=== PATIENT | male | born 1935 | race Caucasian/White ===

== ENCOUNTER 2016-10-19 11:36 | Emergency (ER) | payer OTHER ==
[~2016-10-19] VITALS: Ht 175.3 cm; Wt 86.2 kg
--- NOTE | ~2016-10-19 | EKG ---
[place] [address] 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 : 1935 Requested By: Flores Ram Order Number: [id number] MD: Scott Dobbins Measurements Intervals [place] Rate: 87 P: 62 CO: 191 QRS: 8 QRSD: 102 T: 66 QT: 376 QTc: 453 Interpretive Statements Sinus rhythm Abnormal R-wave progression, early transition Baseline wander in lead(s) II,III,aVF,V5 Compared to ECG 05/14/2016 14:14:43 First degree AV block no longer present Electronically Signed On 10-20-2016 7:52:30 NEEDLE LOOM TENDER by Scott Dobbins [email or web address] <ELECTRONICALLY SIGNED> By: Scott Dobbins MD, [facility] 10/20/16 0752 1231 1231 Scott Dobbins MD, [facility] /EPI
[~2016-10-19 11:36] MED LIST: AMITRIPTYLINE H25 M2 PO; ASPIR 8181 MG PO; BENICAR20 MG PO; CARDIZEM CD120 MG PO; CARVEDILOL12.5 MG PO; HYDROCODONE-AP1 EAC6 PO; LASIX 20 MG TAB20 MG PO; NAPROSYN500 MG PO; PLAVIX 75 MG TA75 M1 PO; SIMVASTATIN40 MG PO; ZANTAC 150MG T150 MG PO
[2016-10-19 12:17] LABS: ABSOLUTE NEUTROPHILS 5.7 thou/uL (1.4-8.2); BASOPHILS 0.5 % (0.0-2.0); EOSINOPHILS 2.9 % (0.0-3.0); HEMATOCRIT 42.3 % (42.0-52.0); HEMOGLOBIN 14.5 gm/dL (14.0-18.0); LYMPHOCYTES 18.3 % (24.0-44.0); MCH 31.8 pg (26.0-34.0); MCHC 34.2 % (28.0-37.0); MCV 93.2 fL (80.0-100.0); PLATELET COUNT 161 thou/uL (150-400); POLYS 70.3 % (36.0-66.0); RBC 4.54 mil/uL (4.50-6.00); RDW 13.9 % (10.5-14.5); WBC 8.1 thou/uL (4.0-11.0)
[2016-10-19 12:28] LABS: MANUAL DIFF NO
[2016-10-19 12:31] LABS: ANION GAP 3 mmol/L (7-16); BUN 22 mg/dL (7-18); CALCIUM 8.9 mg/dL (8.5-10.1); CHLORIDE 99 mmol/L (98-107); CO2 36 mmol/L (21-32); CREATININE 1.4 mg/dL (0.6-1.3); GLUCOSE 269 mg/dL (70-99); POTASSIUM 3.8 mmol/L (3.5-5.1); SODIUM 138 mmol/L (136-145)
[2016-10-19 12:36] LABS: ALBUMIN 3.4 g/dL (3.4-5.0); ALKALINE PHOSPHATASE 107 U/L (46-116); DIRECT BILIRUBIN < 0.1 mg/dL (<0.1-0.3); SGOT 16 U/L (15-37); SGPT 24 U/L (30-65); TOTAL BILIRUBIN 0.3 mg/dL (<0.1-1.0); TOTAL PROTEIN 6.8 g/dL (6.4-8.2)
[2016-10-19 14:05] LABS: URINE BILIRUBIN NEGATIVE (Negative); URINE BLOOD 3+ (Negative); URINE COLOR YELLOW; URINE GLUCOSE-RANDOM* 2+ (Negative); URINE KETONES NEGATIVE (Negative); URINE LEUKOCYTES-REFLEX NEGATIVE (Negative); URINE PROTEIN (DIPSTICK) NEGATIVE (Negative); URINE SPECIFIC GRAVITY 1.015 (1.003-1.035); URINE UROBILINOGEN 0.2 E.U./dl (0.2-1.0)
[2016-10-19 14:20] LABS: CASTS None Seen /LPF (None Seen); CRYSTALS None Seen /LPF (None Seen); SQUAMOUS 0-3 Few /LPF (0-3); URINE RBC >20 Many /HPF (0-2); URINE WBC-REFLEX 0-5 Rare /HPF (0-5)
== END 2016-10-19 14:53 | disposition home or self-care (01) ==
LOC: ER 11:36
PROVIDERS: Emergency Medicine
DX: R73.9 Hyperglycemia, unspecified (principal); E86.0 Dehydration; I11.0 Hypertensive heart disease with heart failure; I50.9 Heart failure, unspecified; Z86.73 Personal history of transient ischemic attack (TIA), and cerebral infarction without residual deficits; Z91.048 Other nonmedicinal substance allergy status; Z88.8 Allergy status to other drugs, medicaments and biological substances; F10.99 Alcohol use, unspecified with unspecified alcohol-induced disorder

== ENCOUNTER → 2016-10-21 | Outpatient (CLI) | payer OTHER | LOC: RAD 02:43 | DX: F44.89 Other dissociative and conversion disorders (principal); G31.9 Degenerative disease of nervous system, unspecified ==

== ENCOUNTER 2017-03-16 07:08 | Inpatient (IN) | payer OTHER ==
[~2017-03-16] VITALS: Ht 175.3 cm; Wt 87.8 kg
--- NOTE | ~2017-03-16 | EKG ---
[address] [address] ELECTROCARDIOGRAM REPORT Name: HUANG CARMEN Room #: 539-P ADM IN M.R.#: [id number] Admission: 03/16/17 Attend Phys: Nestor Greenwood MD Discharge: Date of : 34 Report #: [id number] THIS REPORT FOR: //name// [facility] ED Test Date: 2017-03-16 Test Time: 07:57:59 Pat Name: HUANG CARMEN Department: Room: 539 Gender: M House Registry Rn: MIRA TERRAZAS : 1935 Requested By: Belle Rico Order Number: [id number] MD: Scott Dobbins Measurements Intervals [place] Rate: 77 P: 73 WV: 207 QRS: 0 QRSD: 105 T: 81 QT: 405 QTc: 459 Interpretive Statements Sinus rhythm Abnormal R-wave progression, early transition Nonspecific T abnormalities, lateral leads Compared to ECG 10/19/2016 12:31:58 No significant change was found Electronically Signed On 03-19-2017 11:48:14 CDT by Scott Dobbins [email or web address] <ELECTRONICALLY SIGNED> By: Scott Dobbins MD, [facility] 03/19/17 1148 0757 0757 Scott Dobbins MD, [facility] /EPI
--- NOTE | ~2017-03-16 | O ---
[facility] [place] [address] OPERATIVE REPORT Name: HUANG CARMEN Room #: 539-P ADM IN M.R.#: [id number] Admission: 03/16/17 Attend Phys: Nestor Greenwood MD Discharge: Date of : 33 Report #: [id number] THIS REPORT FOR: //name// CC: Nestor Rico DATE OF SERVICE: 03/17/2017 PREOPERATIVE DIAGNOSIS: Fracture, left femoral neck. POSTOPERATIVE DIAGNOSIS: Fracture, left femoral neck. PROCEDURE: Left proximal femoral hemiarthroplasty. SURGEON: Terrence Frances M.D. INDICATIONS: This frail, but still active and ambulatory 82-year-old gentleman uses a walker or cane for support, but is able to ambulate independently. He fell injuring the left hip. X-rays reveal a fracture of the femoral neck with some impaction. We have discussed preoperatively the option of either percutaneous screw stabilization or hemiarthroplasty. I feel his balance and weakness issues will make him a poor candidate for rehab with percutaneous fixation. We have elected to go ahead with hemiarthroplasty in hopes he can more rapidly advance to independent ambulation. They understand the treatment options and the risks and benefits well. DESCRIPTION OF PROCEDURE: The patient was taken to the operating room where he was placed under general anesthesia. Prophylactic intravenous antibiotics were administered. He was turned to the right lateral decubitus position. The left hip and thigh were meticulously prepped and draped. A slightly curving posterolateral skin incision was made extending through the fascia and exposing the posterior aspect of the hip joint. The short external rotators and joint capsule were taken down and tagged with several #2 Tevdek sutures. The femoral neck was found to be fractured and unstable. The head was removed and measured at 53 mm in diameter. The femoral neck was trimmed back to an appropriate level. The Genesis Secur-Fit hip system was utilized. The canal was sequentially reamed and broached to a size 7. A trial reduction revealed that a +5 mm neck length fit nicely with good stability, alignment, range of motion. A cement restrictor was placed. Methyl methacrylate cement was mixed and injected into the canal. The permanent Genesis cemented Secur-Fit stem was selected. This was placed in the canal, positioning this in about 20-25 degrees of anteversion, it seated nicely. Gentle pressure was held as the cement hardened. A trial reduction was then performed and the hip seemed nicely reduced and stable when using a 53 mm bipolar head and a +5 mm neck length. The permanent components were brought on to the field and impacted on to the Can taper, the hip was reduced. Alignment, range of motion, stability and leg length were [facility] [address] [place] [address] OPERATIVE REPORT Name: HUANG CARMEN Room #: 539-P [facility] IN M.R.#: [id number] Admission: 03/16/17 Attend Phys: Nestor Greenwood MD Discharge: Date of : 34 Report #: [id number] assessed and felt to be satisfactory. The wound was copiously irrigated and good hemostasis was established. The capsule and short external rotators were repaired using the #1 Tevdek sutures previously placed and passing these through the bone of the greater trochanter. This resulted in excellent hip stability. A single Hemovac was left in the wound exiting through a separate stab incision. The fascia was then closed with multiple #1 Vicryl sutures. The subcutaneous tissues were closed with 0 Monocryl. The skin was closed with skin sweetie. A sterile dressing was applied. The patient was awakened and returned to the recovery room in satisfactory condition. <ELECTRONICALLY SIGNED> By: Terrence Frances MD 03/18/17 0818 1611 1654 Terrence Frances MD /nt
--- NOTE | ~2017-03-16 | HC ---
[facility] [place] [address] CONSULTATION Name: HUANG CARMEN Room #: 539-P ADM IN M.R.#: [id number] Admission: 03/16/17 Attend Phys: Nestor Greenwood MD Discharge: Date of : 34 Report #: [id number] THIS REPORT FOR: //name// CC: Nestor Rico CHIEF COMPLAINT: Left femoral neck fracture. HISTORY OF PRESENT ILLNESS: This frail, but still alert and active 82-year-old gentleman lives with his sister in their own home. He has been ambulatory with a cane or walker for balance and apparently functioning reasonably well. He has a history of hypertension and cardiovascular disease and type 2 diabetes and is well managed on medications. He fell, injuring the left hip. X-rays here reveal an impacted fracture of the left femoral neck. He also has a previous right intertrochanteric fracture, treated with metal fixation, which was subsequently removed. He does have some shortening and some arthritic damage on the opposite right side, which limits his ambulation. At this point, he is too uncomfortable to ambulate on the left hip given his new fracture. He denies any other areas of significant discomfort. PHYSICAL EXAMINATION: Objectively, he is slightly confused, but seems to understand the situation well. He is accompanied by 2 sisters to understand the issue well also. He notes he does have discomfort with any attempted movement of the left hip, but is resting fairly comfortably in bed with the hip slightly flexed. Objectively, he seems to have no other areas of injury involving the neck, upper extremities or back. The pelvis seems to be stable and well aligned. 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 There is no obvious deformity or instability on the right side. The left lower extremity is held in a slightly flexed position with subjective discomfort on any movement. There is not marked deformity or shortening, however. The knee also demonstrates some crepitus and discomfort with movement, although this is only mild. The lower leg, foot and ankle appear to be normal. DIAGNOSTIC DATA: X-rays of the pelvis and left hip reveal an impacted fracture of the femoral neck with slight valgus position. There is not marked displacement at this point, but the fracture seems to be complete and certainly appears potentially unstable. There is mild degenerative arthritis at the joint. The opposite hip shows an old healed intertrochanteric fracture in an acceptable alignment, with somewhat more significant degenerative arthritis at the hip joint. SUMMARY: In summary, this gentleman has a new left femoral neck fracture which is impacted into valgus position. I have explained that this might be manageable with percutaneous screw stabilization; however, it would clearly require protected weightbearing for a period of time and might not heal in successfully. I think he has difficulty with ambulation and would have a hard [address] [address] CONSULTATION Name: HUANG CARMEN Room #: 539-P [facility] IN M.R.#: [id number] Admission: 03/16/17 Attend Phys: Nestor Greenwood MD Discharge: Date of : 34 Report #: [id number] time protecting this left hip and probably would eventually need hip arthroplasty. Consequently, I think the best approach would be to proceed with left hip hemiarthroplasty at this time. The patient and his sisters understand and agree. We will plan to proceed with surgery tomorrow if medical clearance and OR scheduling will allow. <ELECTRONICALLY SIGNED> By: Terrence Frances MD 03/17/17 1449 1711 0001 Terrence Frances MD /nt
--- NOTE | ~2017-03-16 | HC ---
[facility] [place] [address] CONSULTATION Name: HUANG CARMEN Room #: 539-P [facility] IN M.R.#: [id number] Admission: 03/16/17 Attend Phys: Nestor Greenwood MD Discharge: 03/21/17 Date of : 34 Report #: [id number] THIS REPORT FOR: //name// CC: Nestor Rico HISTORY OF PRESENT ILLNESS: The patient is an 82-year-old white male with a history of atrial fibrillation, CHF, hypertension, who had a fall with left hip pain. He was diagnosed with a left femoral neck fracture, impacted. He underwent a left hip hemiarthroplasty on 03/17/2017, therapies are evaluating. We are seeing him in rehabilitation medicine consultation. Postoperatively, he has had some hypoxia and is currently on 2 liters nasal prong O2. He thought to have probable COPD/emphysema. PAST MEDICAL HISTORY: Includes past CVA in 2000, hypertension, coronary artery disease, atrial fibrillation, CHF, carotid occlusion, dementia, and vertigo. HABITS: Former smoker, cigarettes, 100 pack year history, quit greater than a year ago; past use of alcohol was noted. MEDICATIONS: Please see the full medication listing. SOCIAL HISTORY: Lives with his sister in a house, 4 steps in. Premorbidly utilized a cane versus a walker. REVIEW OF SYSTEMS: Did not offer any current complaints of chest pain, shortness of breath or abdominal discomfort. PHYSICAL EXAMINATION: GENERAL: An 82-year-old white male in no obvious distress. VITAL SIGNS: Last recorded temperature is 98.6, pulse 113, respirations 18, blood pressure 124/55. NEUROLOGIC: The patient is alert, pleasant, somewhat tangential, little hard of hearing. He is on 3 liters nasal prong O2. Facies are symmetric. Functional range of motion of both upper extremities with strength grade of 4-/5. DTRs are 1. Left hip is dressed. He has some discomfort when attempting to move the left lower extremity. It appears to have a least antigravity dorsiflexion at the left ankle. Right lower extremity strength is probably a grade 3+ to 4-/5. DTRs are decreased. He was max assist for supine to sit and does have poor endurance. Physical therapy is currently evaluating. ASSESSMENT: An 82-year-old white male with the following problem list: 1. Left femoral neck fracture status post hemiarthroplasty on 03/17/2017, allowed weightbearing as tolerated. 2. Hypoxia with probable underlying chronic obstructive pulmonary disease and emphysema. 3. Diastolic congestive heart failure chronic/[place] [address] CONSULTATION Name: HUANG CARMEN Room #: 539-P [facility] IN M.R.#: [id number] Admission: 03/16/17 Attend Phys: Nestor Greenwood MD Discharge: 03/21/17 Date of : 34 Report #: [id number] 4. Chronic atrial fibrillation. 5. Past history of tobacco abuse. 6. Past history of dementia, but living in the community with family. PLAN: He is currently at a low functional level. Would anticipate a fdc facility stay as the most appropriate for this patient. We will continue to follow along with you for now. <ELECTRONICALLY SIGNED> By: Terrence Sánchez MD 03/22/17 1826 1209 1314 Terrence Sánchez MD /nt
[2017-03-16 07:11] VITALS: BP 118/64
[2017-03-16 07:55] LABS: HEMATOCRIT 42.5 % (42.0-52.0); HEMOGLOBIN 14.4 gm/dL (14.0-18.0); MCH 31.1 pg (26.0-34.0); MCHC 33.9 g/dL (28.0-37.0); MCV 91.5 fL (80.0-100.0); RBC 4.65 mil/uL (4.50-6.00); RDW 13.4 % (10.5-14.5); WBC 11.4 thou/uL (4.0-11.0)
[2017-03-16 07:56] LABS: MANUAL DIFF YES
[2017-03-16 08:05] LABS: CALCIUM 8.7 mg/dL (8.5-10.1); CREATININE 1.4 mg/dL (0.7-1.3); POTASSIUM 4.1 mmol/L (3.5-5.1)
[2017-03-16 08:08] LABS: INR 1.1; PROTIME 11.1 Seconds (9.3-11.4)
[2017-03-16 08:25] LABS: ABSOLUTE NEUTROPHILS 9.8 thou/uL (1.4-8.2); PLATELET COUNT 127 thou/uL (150-400); TOTAL CELL COUNT 100
[2017-03-16 08:26] LABS: ANISOCYTOSIS SLIGHT
[2017-03-16] MEDS ORDERED: ELIQUIS2.5 MG PO (09:21)
[2017-03-16] MEDS ORDERED: OMEPRAZOLE40 MG PO (09:24)
[2017-03-16] MEDS ORDERED: PANTOPRAZOLE SO40 M1 PO (09:26)
[2017-03-16] MEDS ORDERED: SEROQUEL 25 MG25 M1 PO (09:40)
[2017-03-16] MEDS ORDERED: ATIVAN1 MG PO (09:41)
[2017-03-16] MEDS ORDERED: RISPERIDONE0.5 MG PO (09:42)
[2017-03-16] MEDS ORDERED: JANUVIA100 MG PO (09:43)
[2017-03-16] MEDS ORDERED: MOBIC7.5 MG PO (09:43)
[2017-03-16] MEDS ORDERED: NORVASC5 MG PO (09:44)
[2017-03-16] MEDS ORDERED: HYDROCHLOROTH12.5 M1 PO (09:45)
[2017-03-16 10:25] LABS: TSH 3.549 uIU/mL (0.358-3.740)
[2017-03-16 12:20] VITALS: BP 118/68
[2017-03-16 16:29] VITALS: BP 125/56
[2017-03-16 19:51] VITALS: BP 131/60
[2017-03-16 23:36] VITALS: BP 123/61
[2017-03-17] VITALS (14 sets, daily range): BP systolic 104–168; BP diastolic 49–84
[2017-03-17 06:09] LABS: ABSOLUTE NEUTROPHILS 6.6 thou/uL (1.4-8.2); BASOPHILS 0.3 % (0.0-2.0); HEMATOCRIT 42.4 % (42.0-52.0); HEMOGLOBIN 14.5 gm/dL (14.0-18.0); LYMPHOCYTES 13.6 % (24.0-44.0); MCH 31.2 pg (26.0-34.0); MCHC 34.3 g/dL (28.0-37.0); MONOCYTES 7.7 % (1.0-8.0); PLATELET COUNT 117 thou/uL (150-400); POLYS 72.4 % (36.0-66.0); RBC 4.66 mil/uL (4.50-6.00); RDW 13.6 % (10.5-14.5); WBC 9.1 thou/uL (4.0-11.0)
[2017-03-17 06:20] LABS: MANUAL DIFF NO
[2017-03-17 06:24] LABS: CALCIUM 8.5 mg/dL (8.5-10.1); CREATININE 1.1 mg/dL (0.7-1.3); MAGNESIUM 1.9 mg/dL (1.8-2.4); POTASSIUM 3.7 mmol/L (3.5-5.1)
[2017-03-17 18:49] LABS: HEMATOCRIT 41.6 % (42.0-52.0); HEMOGLOBIN 13.9 gm/dL (14.0-18.0); MCH 30.9 pg (26.0-34.0); MCHC 33.5 g/dL (28.0-37.0); MCV 92.3 fL (80.0-100.0); RBC 4.5 mil/uL (4.50-6.00); RDW 13.2 % (10.5-14.5)
[2017-03-18 03:37] LABS: HEMATOCRIT 37.1 % (42.0-52.0); HEMOGLOBIN 12.6 gm/dL (14.0-18.0); MCHC 34.1 g/dL (28.0-37.0); MCV 91.1 fL (80.0-100.0); RBC 4.08 mil/uL (4.50-6.00); RDW 13.4 % (10.5-14.5); WBC 13.8 thou/uL (4.0-11.0)
[2017-03-18 03:48] LABS: CREATININE 1.3 mg/dL (0.7-1.3)
[2017-03-18 04:30] VITALS: BP 107/66
[2017-03-18 08:00] VITALS: BP 108/57
[2017-03-18 10:19] VITALS: BP 124/55
[2017-03-18 17:02] VITALS: BP 108/57
[2017-03-18 20:00] VITALS: BP 112/46
[2017-03-19 04:00] VITALS: BP 115/50
[2017-03-19 04:50] LABS: MCH 31.8 pg (26.0-34.0); MCHC 34.5 g/dL (28.0-37.0); MCV 91.9 fL (80.0-100.0); RBC 3.48 mil/uL (4.50-6.00); RDW 13.4 % (10.5-14.5)
[2017-03-19 07:52] VITALS: BP 118/32
[2017-03-19 08:00] VITALS: BP 138/65
[2017-03-19 15:20] VITALS: BP 138/65
[2017-03-19 19:22] VITALS: BP 155/55
[2017-03-19 20:21] VITALS: BP 155/55
[2017-03-20 03:35] VITALS: BP 119/61
[2017-03-20 03:43] LABS: HEMATOCRIT 29.6 % (42.0-52.0); HEMOGLOBIN 10.3 gm/dL (14.0-18.0); MCH 31.9 pg (26.0-34.0); MCHC 34.9 g/dL (28.0-37.0); MCV 91.3 fL (80.0-100.0); PLATELET COUNT 113 thou/uL (150-400); RBC 3.24 mil/uL (4.50-6.00); RDW 13.5 % (10.5-14.5); WBC 10.7 thou/uL (4.0-11.0)
[2017-03-20 03:46] LABS: MANUAL DIFF YES
[2017-03-20 03:59] LABS: CALCIUM 7.9 mg/dL (8.5-10.1); CREATININE 1.1 mg/dL (0.7-1.3); POTASSIUM 3.8 mmol/L (3.5-5.1)
[2017-03-20 04:38] LABS: ABSOLUTE NEUTROPHILS 8.3 thou/uL (1.4-8.2); TOTAL CELL COUNT 100
[2017-03-20 04:39] LABS: LARGE PLATELETS RARE
[2017-03-20 07:55] VITALS: BP 106/58
[2017-03-20 15:45] VITALS: BP 121/54
[2017-03-20 20:26] VITALS: BP 118/62
[2017-03-21 03:13] VITALS: BP 131/65
[2017-03-21 03:51] LABS: HEMATOCRIT 29.7 % (42.0-52.0); HEMOGLOBIN 10.4 gm/dL (14.0-18.0); MCV 91.3 fL (80.0-100.0); PLATELET COUNT 152 thou/uL (150-400); RBC 3.26 mil/uL (4.50-6.00); RDW 13.4 % (10.5-14.5); WBC 9.2 thou/uL (4.0-11.0)
[2017-03-21 03:53] LABS: MANUAL DIFF YES
[2017-03-21 04:11] LABS: CALCIUM 8.2 mg/dL (8.5-10.1); POTASSIUM 3.9 mmol/L (3.5-5.1)
[2017-03-21 04:22] LABS: ABSOLUTE NEUTROPHILS 7.4 thou/uL (1.4-8.2); LARGE PLATELETS OCCASIONAL; TOTAL CELL COUNT 100
[2017-03-21 07:50] VITALS: BP 137/71
[2017-03-21] MEDS ORDERED: MIRALAX17 GM PO (13:35)
[2017-03-21] MEDS ORDERED: COLACE 100 MG100 MG PO (13:35)
[2017-03-21] MEDS ORDERED: BISAC-EVAC10 MG RECTAL (13:35)
[2017-03-21 20:00] VITALS: BP 99/54
== END 2017-03-21 16:00 | DRG 470 ==
LOC: ER 07:08 → EROBS 08:16 → 5S 08:16
PROVIDERS: Emergency Medicine; Hospitalist; Internal Medicine Endocrinology, Diabetes & Metabolism; Nurse Practitioner; Orthopaedic Surgery
PROC: 0SRS0J9 Replacement of Left Hip Joint, Femoral Surface with Synthetic Substitute, Cemented, Open Approach (ICD-10-PCS; principal; 2017-03-17)
DX: S72.002A Fracture of unspecified part of neck of left femur, initial encounter for closed fracture (principal); I50.32 Chronic diastolic (congestive) heart failure; S42.302A Unspecified fracture of shaft of humerus, left arm, initial encounter for closed fracture; I69.354 Hemiplegia and hemiparesis following cerebral infarction affecting left non-dominant side; J96.10 Chronic respiratory failure, unspecified whether with hypoxia or hypercapnia; I25.10 Atherosclerotic heart disease of native coronary artery without angina pectoris; F03.90 Unspecified dementia, unspecified severity, without behavioral disturbance, psychotic disturbance, mood disturbance, and anxiety; I11.0 Hypertensive heart disease with heart failure; R09.02 Hypoxemia; I48.2 Chronic atrial fibrillation; E11.65 Type 2 diabetes mellitus with hyperglycemia; J44.9 Chronic obstructive pulmonary disease, unspecified; W01.0XXA Fall on same level from slipping, tripping and stumbling without subsequent striking against object, initial encounter; R54 Age-related physical debility; G89.29 Other chronic pain; M25.551 Pain in right hip; Z88.6 Allergy status to analgesic agent; Z98.49 Cataract extraction status, unspecified eye; Z82.49 Family history of ischemic heart disease and other diseases of the circulatory system; Z80.9 Family history of malignant neoplasm, unspecified; Z83.3 Family history of diabetes mellitus; Z79.899 Other long term (current) drug therapy; Z83.6 Family history of other diseases of the respiratory system; Z82.3 Family history of stroke; Z82.0 Family history of epilepsy and other diseases of the nervous system; Z87.891 Personal history of nicotine dependence; Y93.89 Activity, other specified; Y92.89 Other specified places as the place of occurrence of the external cause; Y99.8 Other external cause status; N18.3 Chronic kidney disease, stage 3 (moderate)
CPT/HCPCS: 10089; 10785; 50010; 50101; 50382; 50414; 51057; 51130; 51225; 51412; 53000; 55381; 56521; 56525; 56527; 62110; 62900; 70005

== ENCOUNTER 2017-03-28 11:16 | Inpatient (IN) | payer OTHER ==
[~2017-03-28] VITALS: Ht 172.7 cm; Wt 94.4 kg
[~2017-03-28 11:16] MED LIST changes: +ATIVAN1 MG PO; +BISAC-EVAC10 MG RECTAL; +COLACE 100 MG100 MG PO; +ELIQUIS2.5 MG PO; +HYDROCHLOROTH12.5 M1 PO; +JANUVIA100 MG PO; +MIRALAX17 GM PO; +MOBIC7.5 MG PO; +NORVASC5 MG PO; +OMEPRAZOLE40 MG PO; +PANTOPRAZOLE SO40 M1 PO; +RISPERIDONE0.5 MG PO; +SEROQUEL 25 MG25 M1 PO
[2017-03-28 11:17] VITALS: BP 121/44
[2017-03-28] MEDS ORDERED: ATIVAN1 MG PO (11:28)
[2017-03-28] MEDS ORDERED: DUONEB 2.5-0.5 M3 ML INH (11:29)
[2017-03-28] MEDS ORDERED: SENNA PO (11:31)
[2017-03-28] MEDS ORDERED: PRAVACHOL40 MG PO (11:31)
[2017-03-28] MEDS ORDERED: GAS RELIEF 8080 MG PO (11:32)
[2017-03-28] MEDS ORDERED: XARELTO15 MG PO (11:33)
[2017-03-28 11:35] LABS: HEMATOCRIT 26.7 % (42.0-52.0); HEMOGLOBIN 9.1 gm/dL (14.0-18.0); MCH 30.9 pg (26.0-34.0); MCV 91.1 fL (80.0-100.0); PLATELET COUNT 270 thou/uL (150-400); RBC 2.93 mil/uL (4.50-6.00); RDW 14.1 % (10.5-14.5); WBC 21.6 thou/uL (4.0-11.0)
[2017-03-28 11:37] LABS: MANUAL DIFF YES
[2017-03-28 11:41] LABS: CALCIUM 8.6 mg/dL (8.5-10.1); CREATININE 1.4 mg/dL (0.7-1.3); POTASSIUM 4.2 mmol/L (3.5-5.1)
[2017-03-28 11:46] LABS: ALBUMIN 2.4 g/dL (3.4-5.0); TOTAL BILIRUBIN 0.6 mg/dL (<0.1-1.0); TOTAL PROTEIN 6.1 g/dL (6.4-8.2)
[2017-03-28 12:27] LABS: URINE BILIRUBIN NEGATIVE (Negative); URINE BLOOD 1+ (Negative); URINE COLOR YELLOW; URINE GLUCOSE-RANDOM* NEGATIVE (Negative); URINE KETONES NEGATIVE (Negative); URINE NITRITE NEGATIVE (Negative); URINE PROTEIN (DIPSTICK) TRACE (Negative); URINE UROBILINOGEN 0.2 E.U./dl (0.2-1.0)
[2017-03-28 12:37] LABS: CASTS None Seen /LPF (None Seen); CRYSTALS None Seen /LPF (None Seen); SQUAMOUS 0-3 Few /LPF (0-3); URINE WBC >25 Many /HPF (0-5)
[2017-03-28 12:38] LABS: BACTERIA >30 Many /HPF (None Seen); URINE RBC 3-10 Few /HPF (0-2)
[2017-03-28 12:42] LABS: TOTAL CELL COUNT 100
[2017-03-28 12:43] LABS: ANISOCYTOSIS 1+; HYPOCHROMASIA 1+; POLYCHROMASIA OCCASIONAL
[2017-03-28 14:45] VITALS: BP 112/33
[2017-03-28 16:36] VITALS: BP 135/52
[2017-03-28 20:34] VITALS: BP 127/56
[2017-03-28 23:57] VITALS: BP 115/70
[2017-03-29 04:00] VITALS: BP 154/69
[2017-03-29 08:08] LABS: HEMATOCRIT 27.3 % (42.0-52.0); HEMOGLOBIN 8.9 gm/dL (14.0-18.0); MCH 30.5 pg (26.0-34.0); MCHC 32.8 g/dL (28.0-37.0); MCV 92.9 fL (80.0-100.0); PLATELET COUNT 258 thou/uL (150-400); RBC 2.94 mil/uL (4.50-6.00); RDW 14.4 % (10.5-14.5); WBC 15.7 thou/uL (4.0-11.0)
[2017-03-29 08:10] LABS: MANUAL DIFF YES
[2017-03-29 08:37] VITALS: BP 135/65
[2017-03-29 09:13] LABS: ABSOLUTE NEUTROPHILS 14.1 thou/uL (1.4-8.2); METAMYELOCYTES 1 %; TOTAL CELL COUNT 100
[2017-03-29 09:14] LABS: ANISOCYTOSIS SLIGHT
[2017-03-29 12:54] VITALS: BP 139/73
[2017-03-29 18:01] VITALS: BP 138/66
[2017-03-29 19:47] VITALS: BP 139/67
[2017-03-30 02:46] VITALS: BP 142/61
[2017-03-30 07:54] VITALS: BP 174/88
[2017-03-30 11:32] VITALS: BP 144/70
[2017-03-30 16:23] VITALS: BP 141/67
[2017-03-30 19:55] VITALS: BP 148/69
[2017-03-31 02:51] VITALS: BP 139/75
[2017-03-31 06:28] LABS: HEMOGLOBIN 10.2 gm/dL (14.0-18.0); MCH 30.7 pg (26.0-34.0); MCHC 32.9 g/dL (28.0-37.0); MCV 93.1 fL (80.0-100.0); RBC 3.33 mil/uL (4.50-6.00); RDW 14.4 % (10.5-14.5); WBC 10.2 thou/uL (4.0-11.0)
[2017-03-31 06:43] LABS: ALBUMIN 2.6 g/dL (3.4-5.0); PHOSPHORUS 3.3 mg/dL (2.5-4.9)
[2017-03-31 07:52] VITALS: BP 148/76
[2017-03-31] MEDS ORDERED: CEFUROXIME250 MG PO (08:31)
[2017-03-31] MEDS ORDERED: FLOMAX0.4 MG PO (08:31)
[2017-03-31] MEDS ORDERED: PHENAZOPYRIDIN100 M1 PO (08:32)
[2017-03-31 14:50] LABS: HEMATOCRIT 28.2 % (42.0-52.0); HEMOGLOBIN 9.4 gm/dL (14.0-18.0)
[2017-03-31 15:37] VITALS: BP 152/73
[2017-03-31 20:00] VITALS: BP 146/81
[2017-04-01 04:00] VITALS: BP 152/65
[2017-04-01 07:28] VITALS: BP 136/69
== END 2017-04-01 16:35 | DRG 871 ==
LOC: ER 11:16 → 2N 13:09 → EROBS 13:09 → 2N 15:00 → 4E 03-30 10:49
PROVIDERS: Hospitalist; Nurse Practitioner Family
DX: A41.9 Sepsis, unspecified organism (principal); E43 Unspecified severe protein-calorie malnutrition; E87.1 Hypo-osmolality and hyponatremia; N17.9 Acute kidney failure, unspecified; I13.0 Hypertensive heart and chronic kidney disease with heart failure and stage 1 through stage 4 chronic kidney disease, or unspecified chronic kidney disease; N30.90 Cystitis, unspecified without hematuria; K59.00 Constipation, unspecified; I25.10 Atherosclerotic heart disease of native coronary artery without angina pectoris; I48.91 Unspecified atrial fibrillation; I50.9 Heart failure, unspecified; F03.90 Unspecified dementia, unspecified severity, without behavioral disturbance, psychotic disturbance, mood disturbance, and anxiety; R65.20 Severe sepsis without septic shock; N18.9 Chronic kidney disease, unspecified; N40.0 Benign prostatic hyperplasia without lower urinary tract symptoms; Z96.642 Presence of left artificial hip joint; E86.0 Dehydration; Z82.5 Family history of asthma and other chronic lower respiratory diseases; Z79.899 Other long term (current) drug therapy; Z82.49 Family history of ischemic heart disease and other diseases of the circulatory system; Z86.73 Personal history of transient ischemic attack (TIA), and cerebral infarction without residual deficits; Z88.6 Allergy status to analgesic agent; Z91.018 Allergy to other foods; Z83.3 Family history of diabetes mellitus; Z98.42 Cataract extraction status, left eye; Z98.41 Cataract extraction status, right eye; Z82.3 Family history of stroke; Z87.81 Personal history of (healed) traumatic fracture; Z81.8 Family history of other mental and behavioral disorders; Z80.9 Family history of malignant neoplasm, unspecified; Z87.891 Personal history of nicotine dependence; Z91.81 History of falling; Z68.31 Body mass index [BMI] 31.0-31.9, adult
CPT/HCPCS: 10081; 10783